=== PATIENT | female | born 1940 | race Caucasian/White ===

== ENCOUNTER → 2016-09-07 | Day surgery (SDC) | payer MEDICARE ==
[2016-08-25 08:02] VITALS: Ht 157.5 cm; Wt 59.1 kg
[~2016-09-07] VITALS: Ht 157.5 cm; Wt 59.1 kg
[~2016-09-07] MED LIST: ACETAMINOPHEN 325 MG TAB PO PRN; ASPCH81X PO; ATROPINE SULFATE 0.1 MG/ML 5ML SYR IV PRN; CALC625T13 PO; FENTANYL CITRATE INJ 50 MCG/1 ML 2 ML VIAL ONE; LACTATED RINGER'S 1000ML 500 ML IV SCH; LIDOCAINE 3.5% OPH GEL PER APPLICATION CHARGE OPL SCH; LIDOCAINE 4% OP SOLN DROP CHARGE ONE; MIDAZOLAM HCL 1 MG/ML 2ML VIAL ONE; MOXIFLOXACIN OPH SOLN PER DROP CHARGE ONE; MULT-506 PO; OMEG10007 PO; POVIDONE-IODINE OP SOLN 30 ML BTL ONE; PROPARACAINE 0.5% OP SOLN PER DROP CHARGE OPL SCH; TETRACAINE HCL (OPHTH) 60 DROPS/4 ML BTL OP ONE
[2016-09-07] MEDS: MOXIFLOXACIN OPH SOLN PER DROP CHARGE OPL SCH ×3 (10:00→10:17)
[2016-09-07] MEDS: LIDOCAINE 4% OP SOLN DROP CHARGE OPL SCH (10:18)
--- NOTE | 2016-09-07 10:44 | History & Physical Bridge - [place] ---
H&P Re-Evaluation Bridge Note: I have examined the patient, reviewed the History & Physical and in the interval since the performance of the History & Physical I have noted the following changes of clinical significance: No changes noted
[2016-09-07 11:34] VITALS: TEMP 36.2
--- NOTE | 2016-09-07 11:34 | [facility] Post Operative Brief Note ---
Immediate Operative Summary Operative Date September 07, 2016. Pre-Operative Diagnosis Left Eye Corneal Nodule Post-Operative Diagnosis Same Procedure(s) Performed Left Eye Lamellar Keratectomy Surgeon Dr Haynes Cherry Grower Surgeon(s) None Estimated Blood Loss 0ml Findings arlin's nodular degeneration left eye Specimens None Complication(s) None Disposition Recovery Room / PACU
--- NOTE | 2016-09-07 11:34 | Discharge Instructions-SurgCtr ---
Discharge Instructions Date of Service September 07, 2016. 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 Post Anesthesia Instructions: If you have had General Anesthesia or IV Sedation: * Do not drive today. * Resume driving when surgeon permits. * Do not make important decisions or sign legal documents today. * Call surgeon for: 1. Temperature elevations greater than 101 degrees F. 2. Uncontrollable pain. 3. Excessive bleeding. 4. Persistent nausea and vomiting. 5. Medication intolerance (nausea, vomiting or rash). * For nausea and vomiting use only clear liquids such as: tea, soda, bouillon until nausea subsides, then gradually increase diet as tolerated. * If you have any concerns or questions, call your surgeon's office. If physician is unavailable and it is an emergency, call 911 or go to the nearest emergency room. . Instructions / Follow-Up Instructions / Follow-Up ACTIVITY RECOMMENDATIONS: * Light activities * You may walk outside, read, watch television. * Mild irritation and blurred vision are common for the first few days, redness around the white part of the eye is common. MEDICATIONS: Resume previous medications unless instructed otherwise by your surgeon. Eye drops (today and tomorrow): Cipro - one drop in operative eye every 2 hours while awake Prednisolone 1% - one drop in operative eye every 2 hours while awake Vicodin 5/300- one tablet by mouth every 6 hours as needed for pain SPECIAL CARE INSTRUCTIONS: * If any problems or concerns, please call Dr. Haynes's office at . FOLLOW UP VISIT: Follow-up with Dr. Haynes in the [place] office as scheduled. If not already scheduled, please call the office at . Diet Recommendations Home Diet: resume previous diet Procedures Procedures Performed: Left Eye Lamellar Keratectomy Pending Studies Studies pending at discharge: no Medical Emergencies . Who to Call and When: Medical Emergencies: If at any time you feel your situation is an emergency, please call 911 immediately. . Non-Emergent Contact Non-Emergency issues call your: [employer] . . "Provider Documentation" section prepared by Pete Haynes. .
[2016-09-07 11:58] VITALS: BP 123/58; PULSE 52; O2SAT 99
--- NOTE | 2016-09-07 12:01 | Anesthesia Progress Nt - [facility] ---
Anesthesia Post Op Note Date & Time September 07, 2016 at 12:01 Vital Signs Pain Intensity: 0 Vital Signs Past 12 Hours Date Time Temp Pulse Resp B/P Pulse Ox O2 Delivery O2 Flow Rate FiO2 09/07/16 11:58 52 16 123/58 99 Room Air 09/07/16 11:34 36.2 60 16 106/59 95 Room Air 09/07/16 10:00 36.4 61 18 143/72 98 Room Air Notes Mental Status: alert / awake / arousable, participated in evaluation Pt Amnestic to Procedure: Yes Nausea / Vomiting: adequately controlled Pain: adequately controlled Airway Patency, RR, SpO2: stable & adequate BP & HR: stable & adequate Hydration State: stable & adequate Anesthetic Complications: no major complications apparent
--- NOTE | 2016-09-07 12:44 | OPERATIVE REPORT ---
DATE OF OPERATION: 09/07/2016 PREOPERATIVE DIAGNOSIS: Salzmann nodular degeneration, left eye. POSTOPERATIVE DIAGNOSIS: Same. PROCEDURE PERFORMED: Lamellar keratectomy, left eye. COMPLICATIONS: None. ESTIMATED BLOOD LOSS: None. ANESTHESIA: Local with sedation. DESCRIPTION OF PROCEDURE: After informed consent was obtained in the holding area, the patient was taken to the operating room where cardiac monitoring leads and oxygen by nasal canula was administered by anesthesia. Gentle IV sedation was given and the patient's left eye was prepped and draped in the usual sterile fashion. A wire lid speculum was placed in the left and operating microscope was swung into position. Using 0.12 forceps and a 57 [place] blade, the Salzmann nodular degeneration was reflected off the cornea between the 1 o'clock and 11 o'clock position of the patient's left eye in the periphery. Once this was completed, a bandage contact lens was placed on the eye as well as a drop of Vigamox. The wire lid speculum was removed from the eye and the patient was taken to the recovery area in stable condition. I attest to the content of the Intraoperative Record and any orders documented therein. Any exceptions are noted below. MTDD
== END | disposition home or self-care (01) ==
LOC: X.SURG 09:40
PROVIDERS: ATTEND Ophthalmology
DX: H18.452 Nodular corneal degeneration, left eye (principal); Z85.828 Personal history of other malignant neoplasm of skin; Z79.82 Long term (current) use of aspirin; Z79.899 Other long term (current) drug therapy